=== PATIENT | female | born 1980 | race African-American/Black ===

== ENCOUNTER 2021-05-21 11:50 | Emergency (ER) | payer OTHER, SELFPAY ==
[2021-05-21 12:03] VITALS: BP 151/102; PULSE 75; RESP 18; TEMP 36.8; O2SAT 100
--- NOTE | 2021-05-21 12:14 | ED.URI ---
HPI - URI/Sore Throat General Chief Complaint: Upper Respiratory Infection Stated Complaint: needs a strep swab Time Seen by Provider: 05/21/21 12:21 Source: patient and RN notes reviewed Mode of arrival: ambulatory Limitations: no limitations History of Present Illness HPI Narrative: 41-year-old female presents with concern for 2-week history of cough, sore throat, nasal drainage. Reports feeling tired. Reports symptoms have started to resolve, she does not currently have a sore throat. Reports she took 6 days of leftover amoxicillin at home. Reports work employer is requiring her to have a work note. Reports she has been taking Benadryl and Mucinex MD elicited complaint: sore throat Related Data Home Medications Medication Instructions Recorded Confirmed No Home Medications 05/21/21 05/21/21 Allergies Allergy/AdvReac Type Severity Reaction Status Date / Time Penicillins Allergy Mild Unknown Verified 05/21/21 12:23 Review of Systems Review of Systems: CONSTITUTIONAL: Denies malaise, chills, sweats, or fever. Reports fatigue EYES: Denies visual changes, redness, or discharge. ENT: Reports resolving rhinorrhea, congestion, and sore throat. CARDIOVASCULAR: Denies chest pain, palpitations, or edema. RESPIRATORY: Denies cough. Denies dyspnea. GASTROINTESTINAL: Denies abdominal pain, nausea, vomiting, diarrhea SKIN: Denies rash or itching. MUSCULOSKELETAL: Denies myalgia. NEUROLOGIC: Denies headache. All systems reviewed & are unremarkable except as noted in HPI and below PMFSH Past Medical History Medical History Thyroid disorder Surgical History Surgical History deliv NOS-unsp 1999 H/O ventral hernia repair History of cholecystectomy History of tubal ligation Family History Family History Father Diabetes mellitus Mother Cerebrovascular accident Social History Social History (System 04/16/21 @ 11:37 by Alysia Arevalo) Smoking packs per day: 1 Smoking cigarettes per day: 20.0 Smoking status: Current every day smoker Alcohol intake: never Substance use: current Comments At time of signature, agree with nursing past medical, surgical, social and family history. There is no relevant family history pertinent to the presenting complaint Exam Narrative: GENERAL: Well-appearing, well-nourished, and in no acute distress. HEAD: Normocephalic EYES: PERRLA, conjunctivae clear ENT: Nares clear, clear discharge. Mucous membranes moist. TM pearly kuhn with sharp light reflex bilaterally; no tragal tenderness. Oropharynx not erythematous without lesions. Tonsils not enlarged and without exudate, no drooling, no hoarseness, no trismus, uvula midline. NECK: Supple. No lymphadenopathy CHEST: Clear to auscultation, breath sounds equal. No wheezing, rhonchi, rales, or stridor. No respiratory distress, speaks in full sentences. HEART: Regular rate and rhythm. No murmur heard. SKIN: Warm, dry, no rash. NEURO: Alert and oriented x3. PSYCH: Normal mood and affect Course Course Emergency Course: Patient is aware of diagnosis, understands and agrees to treatment plan. Anticipatory guidance given. Patient agrees to follow-up as directed and is aware of reasons to seek care at the emergency department. Portions of this record may have been created with voice recognition software Level of Care: Express Care Visit Vital Signs Vital signs: Vital Signs Temperature 98.3 F 05/21/21 12:03 Pulse Rate 75 05/21/21 12:03 Respiratory Rate 18 05/21/21 12:03 Blood Pressure 151/102 H 05/21/21 12:03 Pulse Oximetry 100 05/21/21 12:03 Temperature 98.3 F 05/21/21 12:03 Pulse Rate 75 05/21/21 12:03 Respiratory Rate 18 05/21/21 12:03 Blood Pressure 151/102 H 05/21/21 12:03 Pulse Oximetry 100 05/21/21 12:03 Reviewed. M
== END 2021-05-21 12:34 | disposition home or self-care (01) ==
PROVIDERS: Emergency Provider Nurse Practitioner
DX: J06.9 Acute upper respiratory infection, unspecified (principal); F17.210 Nicotine dependence, cigarettes, uncomplicated
CPT/HCPCS: 87081; 87880; 99213; G0463

== ENCOUNTER 2022-03-06 07:13 | Emergency (ER) | payer OTHER, SELFPAY ==
--- NOTE | ~2022-03-06 | US_ITS ---
Duplex Sonography of the right extremity: Indication: Calf pain Findings: Sagittal and transverse B-mode images as well as color-flow imaging were performed on the r ight femoral and popliteal veins. B-mode examination was done without and with compression in the tr ansverse plane. There is good visualization of the common femoral, proximal profunda femoral, superf icial femoral, greater saphenous, and popliteal veins. Normal flow was seen on color-flow imaging. N ormal compressibility was demonstrated. Right posterior tibial and peroneal veins also appear patent. Impression: No evidence of deep vein thrombosis involving the right lower extremity. Reviewed, dictated and finalized at location M. K AND TILE MAKING MACHINE OPERATOR Impression: No evidence of deep vein thrombosis involving the right lower extremity.
--- NOTE | ~2022-03-06 | XR_ITS ---
Lumbosacral Spine: AP, oblique, and lateral views Clinical History: Pain Findings: The normal lordotic curve is maintained. The vertebral bodies and posterior elements are i ntact. The intervertebral disc spaces are preserved. The sacroiliac joints are normally outlined. Impression: No significant abnormality. Reviewed, dictated and finalized at [facility]. NUE DIRECTOR Impression: No significant abnormality.
[2022-03-06 07:15] VITALS: BP 130/87; PULSE 85; RESP 18; TEMP 36.3; O2SAT 97
--- NOTE | 2022-03-06 07:44 | PC.NURSE ---
RN informed patient of ordered pain medication. Pt states, Oh no, I don't want a shot of nothing! Pt politely refusing ordered medication. MD Hickman made aware. Pt also reports her tubes are tied and there is no chance of her being . X-ray tech taking patient for imaging.
[2022-03-06 08:48] LABS: Appearance Urine Clear (Clear); Bilirubin Urine Negative (Negative); Blood Urine Negative (Negative); Color Urine Yellow (Yellow); Glucose Urine UA Negative (Negative); Ketones Urine Negative (Negative); Leukocyte Esterase Ur Negative LEU/UL (Negative); Nitrate Urine Negative (Negative); Protein Urine Negative (Negative); Specific Grav Ur 1.025 (1.001-1.035); Urobilinogen Urine 0.2 mg/dL (<2.0)
[2022-03-06 08:49] LABS: Add Urine Microscopic? NO
--- NOTE | 2022-03-06 09:15 | ED.GENADULT ---
HPI - General Adult General Chief complaint: Extremity Injury, Lower Stated complaint: right hip and leg pain Time Seen by Provider: 03/06/22 07:18 Source: RN notes reviewed History of Present Illness HPI narrative: Patient presents emergency department from home for right lower back and leg pain. Patient states symptoms been ongoing for the past 1 month. She states the pain is located in the right lower back and goes into her buttocks and then down her leg she denies having numbness or tingling she denies any bowel or bladder incontinence. She denies any direct trauma or injury states the pain is worse with movement. States she is concerned because she has been having feelings of charley horse in her right leg as well and make sure she does not have a blood clot denies any previous history of back pain or injury states she has been taking Tylenol and ibuprofen all Related Data Allergies Allergy/AdvReac Type Severity Reaction Status Date / Time Penicillins Allergy Mild Unknown Verified 01/06/22 10:24 Review of Systems Review of Systems: Gen.: Denies fevers or chills ENT: Denies congestion Respiratory: Denies shortness of breath or cough CV: Denies chest pain or palpitations GI: Denies abdominal pain nausea, emesis or diarrhea denies incontinence Musculoskeletal: See HPI Neuro: Denies numbness, tingling, weakness or focal weakness Skin: Denies rash Except as documented, all other systems reviewed and negative [facility] Past Medical History Medical History (Updated 03/06/22 @ 09:18 by Jadon Hickman DO) Anemia Screening for breast cancer Surgical History Surgical History deliv NOS-unsp 1997 and 1999 H/O ventral hernia repair History of cholecystectomy History of tubal ligation Family History Family History Father Diabetes mellitus Mother Cerebrovascular accident Social History Social History Smoking packs per day: 1 Smoking cigarettes per day: 20.0 Smoking status: Current every day smoker Alcohol intake: never Substance use: current Substance use type: marijuana Living arrangements: with family Occupation/Education: unemployed Gender identity (if verbalized by the patient): Female Sexual Orientation (if Verbalized by the Patient): Straight or Heterosexual Exam Narrative: APPEARANCE: No acute distress, nontoxic, resting in bed Eyes: EOMI HEENT: Normocephalic, atraumatic, CV: Regular rate and rhythm without murmur RESPIRATORY: No respiratory distress. Clear to auscultation bilaterally. Abdomen: Soft and nontender, no rebound or guarding MUSCULOSKELETAl: Moves all extremities, no clubbing cyanosis or edema Back: No midline lumbar tenderness to palpation or step-off, tender to palpation over right paravertebral muscles L4-5 and right piriformis region, pain increased with forward flexion NEURO: Awake and alert. Following commands, speech normal, no focal deficits, muscle strength 5 out of 5 bilateral lower extremities, bilateral patellar reflex 2+ SKIN:: Warm, dry. Normal Color no rash or lesions Course Course Emergency Course: Patient able to ambulate in ED with no difficulty Discussed with patient results of workup and diagnosis. Discussed need for follow-up with primary care, proper use of medication, and reasons to return to the emergency department. Patient understands and agrees to current treatment plan Vital Signs Vital signs: Vital Signs Temperature 97.4 F L 03/06/22 07:15 Pulse Rate 85 03/06/22 07:15 Respiratory Rate 18 03/06/22 07:15 Blood Pressure 130/87 03/06/22 07:15 Pulse Oximetry 97 03/06/22 07:15 Oxygen Delivery Room Air 03/06/22 07:15 Temperature 97.4 F L 03/06/22 07:15 Pulse Rate 85 03/06/22 07:15 Respiratory Rate 18 03/06/22 07:15 Blood Pressure 130/87
[2022-03-06 09:38] VITALS: BP 124/82; PULSE 76; RESP 16; O2SAT 99
== END 2022-03-06 09:40 | disposition home or self-care (01) ==
PROVIDERS: Emergency Provider Emergency Medicine
DX: M54.41 Lumbago with sciatica, right side (principal); Z86.2 Personal history of diseases of the blood and blood-forming organs and certain disorders involving the immune mechanism; F17.200 Nicotine dependence, unspecified, uncomplicated
CPT/HCPCS: 72110; 81003; 81025; 93971; 99284

== ENCOUNTER 2022-05-07 00:40 | Day surgery (SDC) | payer OTHER, SELFPAY ==
[2022-05-04 09:35] VITALS: BMI 36.6
--- NOTE | 2022-05-04 09:43 | PC.NURSE ---
Report to the Outpatient Waiting Room, entrance under the green pavilion located off [facility], at time 12:00 on date 05/07/22. Planned Procedure Time: 2:00. Time changes happen often and if your time is changed the preop area will call you the afternoon before. - You and your visitor will be asked to self-screen and do not enter if you have any COVID symptoms. - Only one visitor is requested with a max of two and NO children visitors are allowed at this time. - The patient visitor may be requested to leave or wait in car when not with patient due to distancing restrictions. - A mask is optional within the hospital at this time. Patients may have clear liquids (water, carbonated beverages, clear teas, apple juice) until 3 hours prior to surgery (11:00) with a maximum of 20 ounces. - No food from midnight until time of surgery Take the following medications with a SIP of water the morning of surgery: N/A DO NOT STOP ANY OF YOUR OTHER PRESCRIPTION MEDICATIONS PRIOR TO SURGERY?EXCEPT THE FOLLOWING Medications to discontinue per physician: N/A Date to take last dose: N/A Please no make-up, nail latvian, hairspray, perfume, deodorant, or body powder the day of surgery. No jewelry (including any body piercings) or valuables the day of surgery, leave them at home. Please take a shower or bath the night before, or the morning of, surgery with an antibacterial soap. Wear comfortable, loose fitting clothing. - Jewelry must be removed prior to entering the operating room. Rings and piercings that are not removed may be cut off. - The hospital will not accept responsibility for valuables. - Please leave all valuables, including medications, at home the day of surgery. If you are going home after surgery, a licensed certified driver examiner must drive you home. - NO public transportation without another adult if you receive anesthesia. - We recommend that an adult stay with you for 24 hours following discharge. - We also recommend that you do not drive, make important decision, drink alcoholic beverages, or take any drugs that were not prescribed by your health care provider for at least 24 hours after your discharge time. Follow any additional instructions given to you from your surgeon. If you or anyone in your household have experienced Covid symptoms in the past week, please notify your surgeon or the nurse liaison at the phone number below for possible testing. Telephone instructions given to ANSHUL MITCHELL and asked if any additional questions and then verbalized understanding. Patient advised to call surgeon office or pre surgery nurse liaison [phone] if any additional questions.
--- NOTE | 2022-05-07 08:28 | PM.IMHP ---
H&P: HPI History of Present Illness Date/Time: 05/07/22 08:28 Chief Complaint: abnormal uterine bleeding Narrative: 42-year-old female who presents for hysteroscopy, D&C, endometrial ablation for abnormal uterine bleeding. Patient was seen for abnormally heavy and prolonged menses. Patient's menses were also extremely painful. She states her periods are so heavy she required an adult diaper. Patient had blood down to symptomatic anemia. Patient has tried oral contraceptives in the past. Patient desired surgical management with endometrial ablation. Review of Systems Cardiovascular: Cardiovascular: Denies chest pain, Denies leg edema, Denies palpitations, Denies dyspnea and Denies dyspnea on exertion Respiratory: Respiratory: Denies cough, Denies dyspnea and Denies dyspnea on exertion Gastrointestinal: Gastrointestinal: Denies abdominal pain, Denies constipation, Denies diarrhea, Denies nausea and Denies vomiting Genitourinary: Genitourinary: Denies hematuria, Denies urinary frequency, Denies dysuria, Denies pelvic pain, Denies urinary incontinence and Denies vaginal discharge Neurologic: Reports system reviewed and no additional complaints, except as documented Psychiatric: Psychiatric: Reports no additional psychiatric complaints Endocrine: Endocrine: Denies palpitations PMFSH Past Medical History Medical History Anemia Screening for breast cancer Surgical History Surgical History deliv NOS-unsp 1997 and 1999 H/O ventral hernia repair History of cholecystectomy History of tubal ligation Family History Family History Father Diabetes mellitus Mother Cerebrovascular accident Social History Social History Smoking packs per day: 0.5 Smoking cigarettes per day: 10.0 Years smoked: 15 Smoking pack-years: 7.50 Smoking status: Current every day smoker Tobacco type: cigarettes Alcohol intake: never Substance use: current Substance use type: marijuana Living arrangements: with family Occupation/Education: unemployed Gender identity (if verbalized by the patient): Female Sexual Orientation (if Verbalized by the Patient): Straight or Heterosexual Spiritual care concerns: No Meds Home Medications and Allergies Home Medications Medication Instructions Recorded Confirmed Type No Home Medications 05/04/22 05/04/22 History Allergies Allergy/AdvReac Type Severity Reaction Status Date / Time Penicillins Allergy Mild Unknown Verified 05/04/22 09:35 Exam Const: General: no acute distress Eyes: EOM: EOMs intact bilaterally Neck: Neck: supple Thyroid: thyroid normal Chest: Breast/axilla inspection: normal inspection of the breasts Breast/axilla palpation: normal palpation of the breasts, normal palpation of the axillae and no axillary lymphadenopathy Resp: Effort & Inspection: normal respiratory effort Auscultation: clear to auscultation bilaterally Cardio: Rate: regular rate Rhythm: regular rhythm GI: Inspection: non-distended GI Palp: Yes Soft to palpation, No Tenderness to palpation present (GI) and No Guarding due to palpation present (GI) Auscultation: normal bowel sounds : General: No bladder normal to palpation External Female Exam: normal external appearance Speculum Exam - Vagina: normal vaginal discharge and No vaginal bleeding Speculum Exam - Cervix: nontender Bimanual exam- vagina & uterus: No bladder normal to palpation and No Cervical tenderness present OB/external & speculum: No vaginal bleeding Skin: General skin exam: normal color and no rashes or lesions noted Neuro: Cognition (Neuro): normal cognition Speech: normal speech Extrem: General: normal to inspection and no edema Psych: Mental Status: mental status
--- NOTE | 2022-05-07 08:29 | WPDHPUPDATE1 ---
History and Physical Update Update Date/Time: 05/07/22 08:29 History and Physical has been reviewed, including an updated exam of the patient. There are NO changes in the patient's condition. Risks, benefits, and alternatives have been discussed and questions answered. Patient agrees to proceed with procedure.
[2022-05-07 12:10] VITALS: BP 125/82; PULSE 79; RESP 16; TEMP 36.7; O2SAT 100
[2022-05-07] MEDS: ACETAMINOPHEN 500 MG TABLET 1000 MG PO (12:14)
[2022-05-07] MEDS: LACTATED RINGERS 1,000 ML 30 ML IV CONT (12:22)
--- NOTE | 2022-05-07 12:40 | WPDANESEPPF ---
Anes - Initial Pre Proc Eval Procedure: Operation Date: 05/07/22 13:00 Proposed Procedures p Hysteroscopy Dilation and Curettage With Elis Endometrial Ablation - Eyad Brar MD Date/Time: 05/07/22 12:40 Surgeon: Eyad Brar MD Pre Op Diagnosis: abnormal uterine bleeding Patient Data Age: 42 Gender: F Height: 1.65 m Weight: 99.8 kg Allergies Allergy/AdvReac Type Severity Reaction Status Date / Time Penicillins Allergy Mild Unknown Verified 05/04/22 09:35 Home Medications Medication Instructions Recorded Confirmed Type No Home Medications 05/04/22 05/04/22 History Laboratory Tests 05/07/22 12:23 Hgb Pending Hct Pending Patient hx anesthesia problems: none Family hx anesthesia problems: none Results Review: All pre-operative results and documents have been reviewed as part of the pre-operative evaluation. [facility] Past Medical History Medical History Anemia Screening for breast cancer Surgical History Surgical History deliv NOS-unsp 1997 and 1999 H/O ventral hernia repair History of cholecystectomy History of tubal ligation Family History Family History Father Diabetes mellitus Mother Cerebrovascular accident Social History Social History Smoking packs per day: 0.5 Smoking cigarettes per day: 10.0 Years smoked: 15 Smoking pack-years: 7.50 Smoking status: Current every day smoker Tobacco type: cigarettes Alcohol intake: never Substance use: current Substance use type: marijuana Living arrangements: with family Occupation/Education: unemployed Gender identity (if verbalized by the patient): Female Sexual Orientation (if Verbalized by the Patient): Straight or Heterosexual Spiritual care concerns: No Anes - Eval Final PreProcedure Day of Procedure 05/07/22 12:40 Patient weight: obese Heart: regular rate and rhythm Lungs: clear to auscultation Airway: Mallampati scale class II Neurological: alert and oriented Last oral intake: >/= 8 hours ASA classification: III Emergent: no Anesthetic plan: proceed Anesthesia type and monitoring: general GIVS and standard monitoring Results Review: All pre-operative results and documents have been reviewed as part of the pre-operative evaluation. Informed Consent: The patient's anesthetic plan and its attendant risks and benefits were discussed with the patient/family/POA. Questions were solicited and answers provided to the satisfaction of the patient/family/POA.
[2022-05-07 12:52] LABS: Hematocrit 32.6 % (37.0-47.0); Hemoglobin 10.2 g/dL (12.0-15.0)
[2022-05-07] MEDS: LIDOCAINE HCL 1% LOCAL INJ 20 ML VIAL 10 ML INFILTRATE (12:57)
--- NOTE | 2022-05-07 13:05 | W.PM.PROC2 ---
Procedure Note - Detailed Date of Procedure 05/07/22 Pre-op Diagnosis abnormal uterine bleeding Post-op Diagnosis Same Procedure Performed paracervical block hysteroscopy dilation & curettage endometrial ablation Surgeon Eyad Brar MD Anesthesia General Indications abnormal uterine bleeding Findings Globally thickened intrauterine cavity. Normal tubal ostia bilaterally Description of Procedure Cassy Guillen presents for the above procedure for AUB. She was counseled as to the indications, risks, benefits, and alternatives to surgery, with the risks including bleeding, infection, damage to surrounding organs, VTE, and complications of anesthesia. Her verbal and written consent was obtained. PROCEDURE: The patient was taken to the OR and general anesthesia induced. She was prepped and draped in Jim stirrups with support of the back and bilateral lower extremities. I/O catheterization performed of the bladder. The above findings were noted. Infiltration with 1% lidocaine at the 3 and 9 o'clock cervical positions was performed. A single tooth tenaculum was placed on the anterior lip of the cervix. The uterus sounded to 10 cm. The cervix was dilated with sequential Naomi dilators. Hysteroscopy, using a normal saline medium, was performed and showed the above findings. Sharp uterine curettage was then performed and tissue placed on Telfa. The Elis device was set to a depth of 6.5 cm. The device was inserted into the uterus and deployed. Good fit was reassured by the device indicator. The cervical balloon was insufflated to ensure a good seal. Uterine integrity test was performed by the Elis device and was successful. The device was then activated. The entire ablation procedure lasted 120 seconds. The cervical balloon was desufflated and the device was removed from the uterus. The hysteroscope was re-introduced to ensure adequate tissue ablation. The tenaculum was removed and hemostasis was observed. The patient tolerated the procedure well. Sponge, lap, and needle counts were correct. The patient was taken to the recovery room in stable condition. Estimated Blood Loss 5 Urine Output 25 Drains No Packing No Pathology Yes (endometrial curettings ) Complications No immediate complications Condition Stable Disposition PACU [facility] Billing Surgery - Charge Forward: Surgery Billing
[2022-05-07 13:10] VITALS: BP 161/97; PULSE 77; RESP 16; O2SAT 100
[2022-05-07 13:40] VITALS: BP 136/90; PULSE 84; RESP 16
[2022-05-07] MEDS: oxyCODONE HCL (*CRX) 5 MG TAB IR PO (13:51)
[2022-05-07 14:10] VITALS: BP 164/85; PULSE 79; RESP 16
== END 2022-05-07 14:20 | disposition home or self-care (01) ==
PROVIDERS: Visit Provider Student in an Organized Health Care Education/Training Program
PROC: 0U5B8ZZ Destruction of Endometrium, Via Natural or Artificial Opening Endoscopic (ICD-10-PCS; CPT 58563; principal; 2022-05-07 13:00)
DX: N92.0 Excessive and frequent menstruation with regular cycle (principal); F17.210 Nicotine dependence, cigarettes, uncomplicated; F12.90 Cannabis use, unspecified, uncomplicated; E66.9 Obesity, unspecified; Z68.41 Body mass index [BMI] 40.0-44.9, adult
CPT/HCPCS: 58563; 36415; 85014; 85018; 88305; A9270; J1885; J2250; J2704; J3010; J7120

== ENCOUNTER 2022-06-16 13:31 | Outpatient (CLI) | payer OTHER, SELFPAY ==
--- NOTE | ~2022-06-16 | US_ITS ---
EXAMINATION: US pelvic complete w TV DATE: 06/16/2022 14:26 INDICATION: Abnormal uterine and vaginal bleeding Comparison:No prior studies for comparison. TECHNIQUE: Multiple transabdominal and endovaginal sonographic images of the pelvis performed. FINDINGS: The uterus measures 11 x 5.5 x 7.3 cm. There is trace fluid in the endometrium. There are u terine fibroids, largest measuring 3.1 cm. Next field The endometrial complex measures 5 mm. The right ovary measures 2.2 x 2.8 x 1.5 cm and the left ovary measures 2.2 x 2.2 x 1.4 cm. There ar e small follicles in each ovary. Normal doppler signal in both ovaries. There is no free fluid in the pelvis. There are no abnormal masses seen on either side. IMPRESSION: 1. Enlarged fibroid uterus. Reviewed, dictated and finalized at location L. IMPRESSION: 1. Enlarged fibroid uterus.
== END 2022-06-16 13:32 | disposition home or self-care (01) ==
PROVIDERS: Visit Provider Student in an Organized Health Care Education/Training Program
DX: N93.9 Abnormal uterine and vaginal bleeding, unspecified (principal); N85.2 Hypertrophy of uterus; D25.9 Leiomyoma of uterus, unspecified
CPT/HCPCS: 76830; 76856

== ENCOUNTER 2022-07-24 00:41 | Day surgery (SDC) | payer OTHER, SELFPAY ==
[2022-07-16 13:01] VITALS: BMI 42.9
--- NOTE | 2022-07-16 13:03 | PC.NURSE ---
Report to the Outpatient Waiting Room, entrance under the green pavilion located off [facility], at time 8:00 on date 07/24/22. Planned Procedure Time: 10:00. Time changes happen often and if your time is changed the preop area will call you the afternoon before. - You and your visitor will be asked to self-screen and do not enter if you have any COVID symptoms. - A mask is optional within the hospital at this time. Patients may have clear liquids (water, carbonated beverages, clear teas, apple juice) until 3 hours prior to surgery with a maximum of 20 ounces. - No food from midnight until time of surgery Take the following medications with a SIP of water the morning of surgery: CYCLOBENZAPRINE IF NEEDED, LEXAPRO, CLINDAMYCIN IF STILL TAKING DO NOT STOP ANY OF YOUR OTHER PRESCRIPTION MEDICATIONS PRIOR TO SURGERY ?EXCEPT THE FOLLOWING Medications to discontinue per physician: N/A Date to take last dose: N/A Please no make-up, nail croatian, hairspray, perfume, deodorant, or body powder the day of surgery. No jewelry (including any body piercings) or valuables the day of surgery, leave them at home. Please take a shower or bath the night before, or the morning of, surgery with an antibacterial soap. Wear comfortable, loose fitting clothing. - Jewelry must be removed prior to entering the operating room. Rings and piercings that are not removed may be cut off. - The hospital will not accept responsibility for valuables. - Please leave all valuables, including medications, at home the day of surgery. If you are going home after surgery, a licensed taxi driver supervisor must drive you home. - NO public transportation without another adult if you receive anesthesia. - We recommend that an adult stay with you for 24 hours following discharge. - We also recommend that you do not drive, make important decision, drink alcoholic beverages, or take any drugs that were not prescribed by your health care provider for at least 24 hours after your discharge time. Follow any additional instructions given to you from your surgeon. If you or anyone in your household have experienced Covid symptoms in the past week, please notify your surgeon or the nurse liaison at the phone number below for possible testing. Telephone instructions given to PT - MARY ANN MITCHELL and asked if any additional questions and then verbalized understanding. Patient advised to call surgeon office or pre surgery nurse liaison [phone] if any additional questions.
--- NOTE | 2022-07-23 14:11 | P.PNAN_ITS ---
Anes - Initial Pre Proc Eval Procedure: Operation Date: 07/24/22 10:00 Proposed Procedures p Robotic Assisted Total Laparoscopic Hysterectomy with Bilateral Salpingectomy - Eyad Brar MD Date/Time: 07/23/22 14:11 Surgeon: Eyad Brar MD Pre Op Diagnosis: Abnormal Uterine Bleeding Patient Data Age: 42 Gender: F Height: 1.65 m Weight: 117 kg Allergies Allergy/AdvReac Type Severity Reaction Status Date / Time Penicillins Allergy Mild Unknown Verified 07/24/22 09:14 Home Medications Medication Instructions Recorded Confirmed Type cyclobenzaprine 10 mg tablet 10 mg PO DAILY 06/18/22 07/16/22 History escitalopram oxalate 10 mg tablet 10 mg PO DAILY #30 tabs 07/15/22 07/16/22 Rx clindamycin HCl 300 mg capsule 300 mg PO Q8H 07/16/22 07/16/22 History Patient hx anesthesia problems: none Family hx anesthesia problems: none Results Review: All pre-operative results and documents have been reviewed as part of the pre- operative evaluation. [facility] Past Medical History Medical History (Updated 07/23/22 @ 14:12 by Francisco Edwards MD) Anemia Morbid obesity with BMI of 40.0-44.9, adult Nicotine dependence Pelvic pain Screening for breast cancer Uterine fibroid Surgical History Surgical History deliv NOS-unsp 1997 and 1999 H/O ventral hernia repair History of cholecystectomy History of hysteroscopy (05/07/22) hscope D&C/ Endometrial Ablation History of tubal ligation Family History Family History Father Diabetes mellitus Mother Cerebrovascular accident Social History Social History Smoking packs per day: 0.5 Smoking cigarettes per day: 10.0 Years smoked: 15 Smoking pack-years: 7.50 Smoking status: Current every day smoker Tobacco type: cigarettes Alcohol intake: never Substance use: current Substance use type: marijuana Living arrangements: with family Occupation/Education: unemployed Gender identity (if verbalized by the patient): Female Sexual Orientation (if Verbalized by the Patient): Straight or Heterosexual Spiritual care concerns: No Anes - Eval Final PreProcedure Day of Procedure 07/23/22 14:11 Patient weight: obese Heart: regular rate and rhythm Lungs: clear to auscultation Airway: Mallampati scale class II Neurological: alert and oriented Last oral intake: >/= 8 hours ASA classification: III Emergent: no Anesthetic plan: proceed Anesthesia type and monitoring: general ETT and standard monitoring Results Review: All pre-operative results and documents have been reviewed as part of the pre- operative evaluation. Informed Consent: The patient's anesthetic plan and its attendant risks and benefits were discussed with the patient/family/POA. Questions were solicited and answers provided to the satisfaction of the patient/family/POA.
--- NOTE | 2022-07-23 15:31 | PCCCNOTE ---
Prereg notes reviewed mulitple time throughout the day, no indication if prior auth is needed, [facility] was down yesterday. Phone call to office sandeep Arreguin asked if they had any documentation if authorization is needed and if so what is the prior auth. Kallie states per [place] fax No prior auth required.
[2022-07-24] VITALS (14 sets, daily range): BP systolic 136–185; BP diastolic 60–107; PULSE 66–89; RESP 14–22; TEMP 36; O2SAT 98–100; BMI 42.5
[2022-07-24] MEDS: LACTATED RINGERS 1,000 ML 30 ML IV CONT (09:08)
[2022-07-24 09:09] LABS: Hematocrit 38.5 % (37.0-47.0); Hemoglobin 12.1 g/dL (12.0-15.0); Mean Corpuscular HGB Conc 31.4 g/dl (32-36); Mean Corpuscular Hemoglobin 24.1 pg (26-34); Mean Corpuscular Volume 76.7 fl (80-100); Mean Platelet Volume 10.1 fl (7.4-10.4); Platelet Count Result 413 k/mm3 (150-375); Red Blood Count 5.02 M/mm3 (4.2-5.4); Red Cell Distribution Width 20.9 % (11.5-14.5); White Blood Count 9.1 K/mm3 (4.5-10.0)
[2022-07-24] MEDS: ACETAMINOPHEN 500 MG TABLET 1000 MG PO (09:09)
[2022-07-24] MEDS: KETOROLAC 15 MG/ML VIAL (*BKC) IV PUSH (09:09)
--- NOTE | 2022-07-24 09:28 | PM.IMHP ---
H&P: HPI History of Present Illness Date/Time: 07/24/22 09:28 Chief Complaint: abnormal uterine bleeding uterine fibroid pelvic pain Narrative: 42-year-old female who presents with complaint of continued heavy bleeding and pelvic pain.? Patient has been dealing with dysmenorrhea, prolonged bleeding, pelvic pain secondary to uterine fibroids for some time.? Patient elected for endometrial ablation.? Endometrial ablation was performed in April.? Patient has continued to have excessive bleeding and pain.? Patient currently taking progesterone contraceptive pills.? Patient states her bleeding is only mildly decreased.? Patient is extremely uncomfortable.? Patient would like to proceed with hysterectomy. Review of Systems Cardiovascular: Cardiovascular: Denies chest pain, Denies leg edema, Denies palpitations, Denies dyspnea and Denies dyspnea on exertion Respiratory: Respiratory: Denies cough, Denies dyspnea and Denies dyspnea on exertion Gastrointestinal: Gastrointestinal: Denies abdominal pain, Denies constipation, Denies diarrhea, Denies nausea and Denies vomiting Genitourinary: Genitourinary: Denies hematuria, Denies urinary frequency, Denies dysuria, Denies pelvic pain, Denies urinary incontinence and Denies vaginal discharge Neurologic: Reports system reviewed and no additional complaints, except as documented Psychiatric: Psychiatric: Reports no additional psychiatric complaints Endocrine: Endocrine: Denies palpitations PMFSH Past Medical History Medical History (Updated 07/23/22 @ 14:12 by Francisco Edwards MD) Anemia Morbid obesity with BMI of 40.0-44.9, adult Nicotine dependence Pelvic pain Screening for breast cancer Uterine fibroid Surgical History Surgical History deliv NOS-unsp 1997 and 1999 H/O ventral hernia repair History of cholecystectomy History of hysteroscopy (05/07/22) hscope D&C/ Endometrial Ablation History of tubal ligation Family History Family History Father Diabetes mellitus Mother Cerebrovascular accident Social History Social History Smoking packs per day: 0.5 Smoking cigarettes per day: 10.0 Years smoked: 15 Smoking pack-years: 7.50 Smoking status: Current every day smoker Tobacco type: cigarettes Alcohol intake: never Substance use: current Substance use type: marijuana Living arrangements: with family Occupation/Education: unemployed Gender identity (if verbalized by the patient): Female Sexual Orientation (if Verbalized by the Patient): Straight or Heterosexual Spiritual care concerns: No Meds Home Medications and Allergies Home Medications Medication Instructions Recorded Confirmed Type cyclobenzaprine 10 mg tablet 10 mg PO DAILY 06/18/22 07/16/22 History escitalopram oxalate 10 mg tablet 10 mg PO DAILY #30 tabs 07/15/22 07/16/22 Rx clindamycin HCl 300 mg capsule 300 mg PO Q8H 07/16/22 07/16/22 History Allergies Allergy/AdvReac Type Severity Reaction Status Date / Time Penicillins Allergy Mild Unknown Verified 07/24/22 09:14 Exam Const: General: no acute distress Eyes: EOM: EOMs intact bilaterally Neck: Neck: supple Thyroid: thyroid normal Chest: Breast/axilla inspection: normal inspection of the breasts Breast/axilla palpation: normal palpation of the breasts, normal palpation of the axillae and no axillary lymphadenopathy Resp: Effort & Inspection: normal respiratory effort Auscultation: clear to auscultation bilaterally Cardio: Rate: regular rate Rhythm: regular rhythm GI: Inspection: non-distended GI Palp: Yes Soft to palpation, No Tenderness to palpation present (GI) and No Guarding due to palpation present (GI) Auscultation: normal bowel sounds : General: No bladder normal to palpation External Female Exam: normal external appear
--- NOTE | 2022-07-24 09:32 | WPDHPUPDATE1 ---
History and Physical Update Update Date/Time: 07/24/22 09:32 History and Physical has been reviewed, including an updated exam of the patient. There are NO changes in the patient's condition. Risks, benefits, and alternatives have been discussed and questions answered. Patient agrees to proceed with procedure.
[2022-07-24] MEDS: ceFAZolin 2 GM/D5W 50 ML 2 GM/50 ML BAG IVPB (09:56)
[2022-07-24] MEDS: LIDO 1%/EPINEPHRINE 1:100,000 50 ML VIAL INFILTRATE (10:37)
--- NOTE | 2022-07-24 11:24 | W.PM.PROC2 ---
Procedure Note - Detailed Date of Procedure 07/24/22 Pre-op Diagnosis Abnormal Uterine Bleeding uterine fibroid pelvic pain Post-op Diagnosis Same Procedure Performed 15 minutes of lysis of adhesions robotic assisted total laparoscopic hysterectomy with bilateral salpingectomy. Surgeon Eyad Brar MD Anesthesia General Indications abnormal uterine bleeding uterine fibroid pelvic pain Findings omental adhesions to the anterior abdominal wall due to prior surgeries enlarged fibroid uterus prior bilateral tubal ligation filmy adhesions between the uterine serosa and abdominal wall Description of Procedure After the patient was appropriately consented she was taken to the operating room where she was transferred to the table in a dorsal supine position. General anesthesia was then induced with endotracheal intubation. The patient was transferred to a dorsal lithotomy position using adjustable yellow-fin stirrups. Her position was adjusted for appropriate support of her lower back and lower extremities. The patient was prepped and draped. A transurethral mathews catheter was place. The cervix was sequentially dilated and a Jhonathan dietetics professor uterine manipulator placed in typical fashion about a 3 cm ELIANA ring. Gloves were changed. After confirmation of a functioning orogastric tube, lidocaine was injected at Goldberg's point in the LUQ and a 8mm incision was made. A 5mm Optiview trocar was then inserted into the abdominal cavity under direct visualization and done so without complication. The abdomen was then insufflated with approximately 2-3L of CO2 establishing a pneumoperitoneum and the patient was placed in Trendelenburg position. Just above the umbilicus in the midline, a 8 mm incision made after injection of lidocaine and a 8 mm bladeless trocar advanced into the abdominal cavity under direct visualization without incident. We subsequently placed two robotic ports in a similar fashion, one in the left mid-quadrant and one in the right, 10cm lateral to the midline port. The robot was then docked. Pelvic survery was performed and the above findings were noted. approximately 15 minutes of lysis of adhesions was performed with monopolar scissors to help restore normal anatomy. After omental and filmy adhesions were removed, attention was turned to the left pelvis. The remainder of the left fallopian tube was removed by sequentially dividing the mesosalpinx towards the uterus sparing the ovary. The utero-ovarian ligament was desiccated and transected, as was the round ligament. The posterior peritoneal leaf was taken down to the ELIANA ring. The anterior leaf was developed as well as the start of the bladder flap. The left uterine artery was then skeletonized and desiccated and transected just above the level of the ELIANA ring. Attention was turned to the right pelvis. The right fallopian tube was removed by sequentially dividing the mesosalpinx towards the uterus sparing the ovary. The utero-ovarian ligament was desiccated and transected, as was the round ligament. The posterior peritoneal leaf was taken down to the ELIANA ring. The anterior leaf was developed as well as the start of the bladder flap. The right uterine artery was then skeletonized and desiccated and transected just above the level of the ELIANA ring. The bladder was then further dissected inferiorly over the level of the ELIANA ring. A circumferential colpotomy was made using monopolar current. The uterus, cervix, bilateral tubes were then delivered transvaginally. I then placed a single figure of eight suture of 0-vicryl in the left corner of the vaginal cuff. I then re-approximated the colpotomy with a running #1 PDO Quill suture in 2 layers. Following this dissection, the abdomen and pelvis were copiously irrigated and all surgical sites found to be hemostatic. Skin sites were reapproximated with 4-0 Vicryl in a subcuticular fashion. Steri-Strips were placed. The patient tolerated the procedure wel
[2022-07-24] MEDS: fentaNYL CITRATE INJ (*CRX) 100 MCG/2 ML VIAL 25 MCG IV PUSH ×7 (11:54→13:00)
[2022-07-24] MEDS: oxyCODONE HCL (*CRX) 5 MG TAB IR PO (14:10)
== END 2022-07-24 15:02 | disposition home or self-care (01) ==
PROVIDERS: PCP Family Medicine; Visit Provider Student in an Organized Health Care Education/Training Program
PROC: (CPT 58571; principal; 2022-07-24 10:00)
DX: D25.1 Intramural leiomyoma of uterus (principal); N93.9 Abnormal uterine and vaginal bleeding, unspecified; R10.2 Pelvic and perineal pain; N94.6 Dysmenorrhea, unspecified; E66.01 Morbid (severe) obesity due to excess calories; Z68.41 Body mass index [BMI] 40.0-44.9, adult; F17.210 Nicotine dependence, cigarettes, uncomplicated
CPT/HCPCS: 58571; S2900; 36415; 71045; 80053; 83690; 85025; 85027; 86850; 86880; 86900; 86901; 86902; 88307; 93005; 96361; 96365; 96374; 96375; 99284; A9270; C9113; J0131; J0690; J1100; J1170; J1885; J2250; J2270; J2405; J2704; J3010; J7030; J7120

== ENCOUNTER 2022-07-24 20:46 | Emergency (ER) | payer OTHER, SELFPAY ==
--- NOTE | ~2022-07-24 | XR_ITS ---
EXAMINATION: XR chest 1V portable Exam Date/Time: 07/24/2022 22:01 CDT HISTORY: Chest pain, n/v, dizziness s/p hysterectomy x today Comparison: 01/05/2018. RESULT: Lines, tubes, and devices: Cholecystectomy clips. Lungs and pleura: Congestive pulmonary vessels. No focal consolidation, effusion, or pneumothorax. Cardiomediastinal silhouette: Stable. Other: No acute osseous or upper abdominal finding. IMPRESSION: Pulmonary vascular congestion. Reviewed, dictated and finalized at location K.
[2022-07-24 20:46] VITALS: BP 174/104; PULSE 73; RESP 21; O2SAT 98
--- NOTE | 2022-07-24 20:49 | ECG_ITS ---
Measurements Intervals [place] Rate: 51 P: 67 WA: 149 QRS: 42 QRSD: 98 T: 46 QT: 444 QTc: 411 Interpretive Statements SINUS BRADYCARDIA WITH OCCASIONAL SUPRAVENTRICULAR PREMATURE COMPLEXES POSSIBLE LEFT ATRIAL ENLARGEMENT [-0.1mV P-WAVE IN V1/V2] ABNORMAL ECG NO PREVIOUS ECG AVAILABLE FOR COMPARISON Electronically Signed On 07-25-2022 9:14:56 CDT by Ari Waldron M.D.
[2022-07-24 20:59] VITALS: PULSE 60
[2022-07-24] MEDS: FAMOTIDINE 20 MG/2 ML VIAL IV PUSH (21:23)
[2022-07-24] MEDS: ONDANSETRON INJ 4 MG/2 ML VIAL IV PUSH (21:24)
[2022-07-24] MEDS: PANTOPRAZOLE SODIUM IV 40 MG VIAL IV PUSH (21:24)
[2022-07-24] MEDS: SODIUM CHLORIDE 0.9% IV 1,000 ML 999 ML IV CONT (21:25)
[2022-07-24 21:39] LABS: Hematocrit 37.5 % (37.0-47.0); Mean Corpuscular Hemoglobin 24.1 pg (26-34); Mean Corpuscular Volume 75.3 fl (80-100); Mean Platelet Volume 10.7 fl (7.4-10.4); Platelet Count Result 424 k/mm3 (150-375); Red Blood Count 4.98 M/mm3 (4.2-5.4); Red Cell Distribution Width 20.7 % (11.5-14.5); White Blood Count 16.8 K/mm3 (4.5-10.0)
[2022-07-24 21:59] LABS: Band Neutrophils Percent 2 % (0-6); Lymphocytes Absolute Manual 1.17 K/mm3 (1.1-4.5); Monocytes Percent Manual 3 % (3-9); Neutrophils Absolute Manual 15.12 K/mm3 (1.7-7.2); Neutrophils Percent Manual 88 % (46-73); Platelet Estimate Adequate (Adequate); Total Cells Counted 100
--- NOTE | 2022-07-24 21:59 | ED.CHESTPAIN ---
HPI - Chest Pain General Chief Complaint: Chest Pain <Dora Tony MD - Last Filed: 07/25/22 21:23> Stated Complaint: cp <Dora Tony MD - Last Filed: 07/25/22 21:23> Time Seen by Provider: 07/24/22 20:49 <Dora Tony MD - Last Filed: 07/25/22 21:23> History of Present Illness HPI narrative: 42-year-old female who had recent hysterectomy this morning presents with severe pain has been going on for hours at starts in her epigastric abdomen and radiates up to her chest, feels like burning, with nausea and vomiting, she has had similar symptoms in the past. No numbness or weakness, no difficulty breathing. <Dora Tony MD - Last Filed: 07/25/22 21:23> Related Data Home Medications: Home Medications Medication Instructions Recorded Confirmed cyclobenzaprine 10 mg tablet 10 mg PO DAILY 06/18/22 07/16/22 clindamycin HCl 300 mg capsule 300 mg PO Q8H 07/16/22 07/16/22 <Dora Tony MD - Last Filed: 07/25/22 21:23> Allergies/Adverse Reactions: Allergies Allergy/AdvReac Type Severity Reaction Status Date / Time Penicillins Allergy Mild Unknown Verified 07/24/22 09:14 <Dora Tony MD - Last Filed: 07/25/22 21:23> Review of Systems Review of Systems: CONST: No fever. HEENT: No sore throat C/V: Chest pain RESP: No cough GI: Reports abdominal pain, nausea, vomiting : No dysuria. M/S: No joint pain. SKIN: No rash. NEURO: [No headache or focal numbness or weakness] PSYCH: [No depression] <Dora Tony MD - Last Filed: 07/25/22 21:23> PMFSH Past Medical History Medical History: Medical History Anemia Morbid obesity with BMI of 40.0-44.9, adult Nicotine dependence Pelvic pain Screening for breast cancer Uterine fibroid <Dora Tony MD - Last Filed: 07/25/22 21:23> Surgical History Surgical History: Surgical History deliv NOS-unsp 1997 and 1999 H/O ventral hernia repair History of cholecystectomy History of hysteroscopy (05/07/22) hscope D&C/ Endometrial Ablation History of tubal ligation <Dora Tony MD - Last Filed: 07/25/22 21:23> Family History Family History: Family History Father Diabetes mellitus Mother Cerebrovascular accident <Dora Tony MD - Last Filed: 07/25/22 21:23> Social History Social History: Social History Smoking packs per day: 0.5 Smoking cigarettes per day: 10.0 Years smoked: 15 Smoking pack-years: 7.50 Smoking status: Current every day smoker Tobacco type: cigarettes Alcohol intake: never Substance use: current Substance use type: marijuana Living arrangements: with family Occupation/Education: unemployed Gender identity (if verbalized by the patient): Female Sexual Orientation (if Verbalized by the Patient): Straight or Heterosexual Spiritual care concerns: No <Dora Tony MD - Last Filed: 07/25/22 21:23> Exam Narrative: EXAMINATION OF ORGAN SYSTEMS/BODY AREAS: Constitutional: Vital signs per nursing GENERAL: Actively retching and appears quite uncomfortable HEAD: Normal with no signs of head trauma. EYES: EOMI, conjunctiva normal ENT: Hearing grossly intact LUNGS: Nonlabored breathing. Clear to auscultation bilaterally. HEART: [Regular rate and rhythm] ABD: [Soft], [minimally tender to palpation]; incisions c/d/i, no rebound or guarding EXT: Normal range of motion, normal peripheral pulses SKIN: [No rashes or lesions.] NEURO: [Alert and oriented x 3. No gross focal sensory or strength deficits.] PSYCH: Normal affect <Dora Tony MD - Last Filed: 07/25/22 21:23> Course Vital Signs Vital signs: Vital Signs Pulse Rate 73 07/24/22 20:46 Respiratory Rate 21 H 07/24/22 20:46 Blood Pressure 174/104 H 07/24/22 20:46 Pulse Oximetry 98
[2022-07-24 22:00] LABS: Anisocytosis 3+ (NORMAL); Schistocytes None Seen (NORMAL)
[2022-07-24 22:01] LABS: Hypochromasia 1+ (NORMAL)
[2022-07-24 22:03] VITALS: PULSE 69; RESP 15; TEMP 36.9; O2SAT 100
--- NOTE | 2022-07-24 22:24 | PC.NURSE ---
Pt reports relief of her chest pain at this time.
[2022-07-24 23:07] VITALS: BP 182/88; PULSE 64; RESP 22; O2SAT 100
[2022-07-24 23:43] LABS: Alanine Aminotransferase 24 U/L (6-35); Albumin Level 4.1 g/dL (3.5-5.1); Alkaline Phosphatase 85 U/L (38-126); Anion Gap 8 mmol/L (8-16); Aspartate Amino Transferase 31 U/L (14-36); Bilirubin,Total 0.4 mg/dL (0.2-1.3); Blood Urea Nitrogen 7 mg/dL (7-17); Calcium 8.6 mg/dL (8.4-10.2); Carbon Dioxide 26 mmol/L (22-30); Chloride 104 mmol/L (98-107); Estimated CRCL calculation 121 ml/min; Estimated Glomerular Filt Rate > 60; Glucose 140 mg/dL (65-110); Lipase 92 U/L (23-300); Potassium 3.9 mmol/L (3.4-5.0); Sodium 138 mmol/L (137-145)
[2022-07-25] MEDS: BELLADONNA ALK/PHENOB ELIX 10 ML, MAG HYDROX/ALUMINUM HYD/SIMETH 30 ML, LIDOCAINE HCL 2... PO (00:51)
[2022-07-25 00:55] VITALS: BP 164/118; PULSE 62; RESP 15; O2SAT 100
[2022-07-25] MEDS: MORPHINE SULFATE (*CRX) 4 MG/ML INJ IV PUSH (01:31)
[2022-07-25 02:23] VITALS: BP 152/106; PULSE 76; RESP 21; O2SAT 98
== END 2022-07-25 02:45 | disposition home or self-care (01) ==
PROVIDERS: Emergency Medicine; Emergency Provider Emergency Medicine; PCP Family Medicine
DX: G89.18 Other acute postprocedural pain (principal); R10.13 Epigastric pain; R07.89 Other chest pain; D64.9 Anemia, unspecified; E66.01 Morbid (severe) obesity due to excess calories; Z68.35 Body mass index [BMI] 35.0-35.9, adult; Z90.49 Acquired absence of other specified parts of digestive tract; F17.210 Nicotine dependence, cigarettes, uncomplicated; I49.1 Atrial premature depolarization; R94.31 Abnormal electrocardiogram [ECG] [EKG]; R09.89 Other specified symptoms and signs involving the circulatory and respiratory systems
CPT/HCPCS: 36415; 71045; 80053; 83690; 85025; 85027; 86850; 86880; 86900; 86901; 86902; 88307; 93005; 96361; 96365; 96374; 96375; 99284; A9270; C9113; J0131; J0690; J1100; J1170; J1885; J2250; J2270; J2405; J2704; J3010; J7030; J7120